=== PATIENT | male | born 1990 | race African-American/Black ===

== ENCOUNTER 2017-03-01 08:35 | Emergency (ER) | payer OTHER, SELFPAY ==
[~2017-03-01] VITALS: Ht 185.4 cm; Wt 108.9 kg
[2017-03-01 08:43] VITALS: BP 164/93
[2017-03-01] MEDS ORDERED: ALBU17IN (08:47)
[2017-03-01] MEDS ORDERED: CHLO125TA (08:47)
[2017-03-01] MEDS ORDERED: DULO1CAP2 (08:47)
[2017-03-01] MEDS ORDERED: predniSONE 20 MG TAB PO ONE (09:45)
[2017-03-01] MEDS: IPRATROPIUM 0.5MG/ALBUTEROL 2.5MG INH SOL UD 3ML (DUONEB)(J7620) NEB SCH ×3 (09:48→10:45)
[2017-03-01 10:25] LABS: CONTROL LINE MONO INT CTR LINE PRESENT
--- NOTE | 2017-03-01 10:31 | REP ---
Chest x-ray: Two views. History: Cough and shortness of breath. . Comparison study: No comparison study . Findings: The lungs are well inflated and free of infiltrate. The pleural angles are sharp. The heart size is normal. Pulmonary vasculature is not increased. No significant bony abnormality is seen. Impression: Negative chest x-ray. Signed by Isaías Mcdermott MD 03/01/2017 10:22 A
[2017-03-01] MEDS ORDERED: PRED20TA PO ×2 (11:24→16:03)
[2017-03-01] MEDS ORDERED: ALBU17IN INH (11:24)
[2017-03-01] MEDS ORDERED: ZITHTAB PO (11:24)
[2017-03-01] MEDS ORDERED: MUCI600T34 PO (11:25)
[2017-03-01] MEDS ORDERED: CLAR1TAB2 PO (11:26)
[2017-03-01] MEDS ORDERED: AZITHROMYCIN 250 MG TAB PO ONE (11:30)
== END 2017-03-01 11:43 | disposition home or self-care (01) ==
LOC: M ED 09:58
DX: J01.90 Acute sinusitis, unspecified (principal); J20.9 Acute bronchitis, unspecified; J45.909 Unspecified asthma, uncomplicated; Z88.0 Allergy status to penicillin; Z79.899 Other long term (current) drug therapy

== ENCOUNTER 2018-02-15 11:46 | Emergency (ER) | payer OTHER, SELFPAY ==
[2018-02-15] MEDS: KETOROLAC TROMETHAMINE 10 MG TAB PO (12:20)
[2018-02-15] MEDS: ALBUTEROL SULFATE 2.5 MG/0.5 ML INH NEB SOLN NEB (12:26)
[2018-02-15 13:02] LABS: INFLUENZA A AMPLIFICATION NEGATIVE (NEGATIVE); INFLUENZA B AMPLIFICATION NEGATIVE (NEGATIVE)
== END 2018-02-15 13:15 | disposition home or self-care (01) ==
LOC: M ED 11:46
DX: J45.901 Unspecified asthma with (acute) exacerbation (principal); S39.012A Strain of muscle, fascia and tendon of lower back, initial encounter; X58.XXXA Exposure to other specified factors, initial encounter; Y92.89 Other specified places as the place of occurrence of the external cause; I10 Essential (primary) hypertension; F41.9 Anxiety disorder, unspecified; F32.9 Major depressive disorder, single episode, unspecified; Z87.891 Personal history of nicotine dependence; Z88.0 Allergy status to penicillin; Z79.899 Other long term (current) drug therapy
CPT/HCPCS: 71046

== ENCOUNTER 2019-05-21 08:47 | Emergency (ER) | payer OTHER ==
[~2019-05-21] VITALS: Ht 188 cm; Wt 98.0 kg
[~2019-05-21 08:47] MED LIST: ALBU17IN; ALBU17IN INH; CHLO125TA; CLAR1TAB2 PO; DICL75TA PO; DULO1CAP5; EFFE75CA2 PO; MUCI600T37 PO; PRED20TA PO; ROBA500T PO; ZITHTAB PO
[2019-05-21] MEDS ORDERED: ALBUTEROL SULFATE 2.5 MG/0.5 ML INH NEB SOLN NEB PRN (09:15)
[2019-05-21 09:48] LABS: BASO # 0.1 10^3/uL (0.0-0.2); BASO % 1.1 % (0.0-1.0); EOS # 0.4 10^3/uL (0.0-0.50); EOS % 7.8 % (0.0-3.0); HEMATOCRIT 41.9 % (42.0-52.0); HEMOGLOBIN 14.3 g/dl (13.5-17.5); LYMPH # 1.6 10^3/uL (1.5-6.5); LYMPH % 29.1 % (24.0-44.0); MEAN CORPUSCULAR HEMOGLOBIN 32.6 pg (27.0-33.0); MEAN CORPUSCULAR HGB CONC 34.1 g/dl (32.0-36.5); MEAN CORPUSCULAR VOLUME 95.7 fl (80.0-96.0); MONO # 0.3 10^3/uL (0.0-0.8); MONO % 5.6 % (0.0-5.0); NEUTROPHILS % 56.2 % (36.0-66.0); PLATELET COUNT, AUTOMATED 155 10^3/uL (150-450); RED BLOOD COUNT 4.38 10^6/uL (4.30-6.10); WHITE BLOOD COUNT 5.4 10^3/uL (4.0-10.0)
[2019-05-21 10:09] LABS: BLOOD UREA NITROGEN 5 MG/DL (7-18); CALCIUM LEVEL 8.9 MG/DL (8.5-10.1); CARBON DIOXIDE LEVEL 24 MEQ/L (21-32); CHLORIDE LEVEL 110 MEQ/L (98-107); CK-MB VALUE MASS < 1.0 NG/ML (<3.6); CPK CREATINE PHOSPHOKINASE 118 U/L (39-308); GLOMERULAR FILTRATION RATE > 60.0 (>60); GLUCOSE, FASTING 92 MG/DL (70-100); MB/CK RELATIVE INDEX 0.85 (< OR =4); POTASSIUM SERUM 3.8 MEQ/L (3.5-5.1); SODIUM LEVEL 142 MEQ/L (136-145); TROPONIN I < 0.02 NG/ML (< 0.10)
--- NOTE | 2019-05-21 10:11 | REP ---
REASON: Cough. COMPARISON: 02/15/2018. FINDINGS: The superior mediastinal structures are midline. The cardiac silhouette is unremarkable in size, shape, and position. The diaphragmatic surfaces of the lungs are regular, and the costophrenic angles are clear. The pulmonary hummel are clear. The imaged osseous structures are intact. IMPRESSION: There is no acute cardiopulmonary disease. Electronically Signed by Bridger Jones DO 05/21/2019 12:30 P
[2019-05-21] MEDS ORDERED: PROAAER10 INH (11:00)
[2019-05-21 11:04] VITALS: BP 137/95
--- NOTE | 2019-05-21 17:56 | ECGEPIP ---
[facility] - ED Test Date: 2019-05-21 Pat Name: CLEMENTE COLEMAN Department: Room: - Gender: Male [employer] Director: kirti : 1990 Requested By: TOO Omer PA-C Order Number: [id number] Reading MD: Jerri Stark Measurements Intervals [place] Rate: 70 P: 39 TX: 134 QRS: 45 QRSD: 113 T: 61 QT: 392 QTc: 426 Interpretive Statements SINUS RHYTHM WITH SINUS ARRHYTHMIA MODERATE INTRAVENTRICULAR CONDUCTION DELAY NO PRIOR Electronically Signed on 05-21-2019 17:56:14 EDT by Jerri Stark
== END 2019-05-21 11:05 | disposition home or self-care (01) ==
LOC: M ED 08:47
DX: J45.901 Unspecified asthma with (acute) exacerbation (principal); I10 Essential (primary) hypertension; F41.9 Anxiety disorder, unspecified; F32.9 Major depressive disorder, single episode, unspecified; Z88.0 Allergy status to penicillin; Z79.899 Other long term (current) drug therapy

== ENCOUNTER 2019-11-27 09:19 | Emergency (ER) | payer OTHER ==
[~2019-11-27] VITALS: Ht 188 cm; Wt 102.0 kg
[~2019-11-27 09:19] MED LIST changes: +PROAAER10 INH
[2019-11-27] MEDS ORDERED: LIDOCAINE 5% (LIDODERM) PATCH TD ONE (11:15)
[2019-11-27 11:39] LABS: BASO # 0.1 10^3/uL (0.0-0.2); EOS # 0.3 10^3/uL (0.0-0.5); EOS % 5.6 % (0.0-3.0); HEMATOCRIT 42.6 % (42.0-52.0); HEMOGLOBIN 13.9 g/dl (13.5-17.5); LYMPH # 1.7 10^3/uL (1.5-5.0); LYMPH % 27.8 % (24.0-44.0); MEAN CORPUSCULAR HEMOGLOBIN 31.8 pg (27.0-33.0); MEAN CORPUSCULAR HGB CONC 32.6 g/dl (32.0-36.5); MEAN CORPUSCULAR VOLUME 97.5 fl (80.0-96.0); MONO # 0.4 10^3/uL (0.0-0.8); MONO % 5.9 % (0.0-5.0); NEUTROPHILS # 3.6 10^3/uL (1.5-8.5); NEUTROPHILS % 59.5 % (36.0-66.0); PLATELET COUNT, AUTOMATED 144 10^3/uL (150-450); RED BLOOD COUNT 4.37 10^6/uL (4.30-6.10); WHITE BLOOD COUNT 6.1 10^3/uL (4.0-10.0)
--- NOTE | 2019-11-27 11:49 | REP ---
Clinical: thoracic pain. Technique: AP, lateral, and swimmers views. Findings: Alignment and kyphosis is maintained. Vertebral bodies intact. No acute fracture / compression injury or subluxation. No degenerative changes. Paravertebral soft tissues are normal. Impression: Normal thoracic spine series. Electronically Signed by Bebo Avina MD 11/27/2019 11:40 A
--- NOTE | 2019-11-27 11:51 | REP ---
PA and lateral chest: Comparison is 05/21/2019. The lung hummel are clear. The cardiac size is normal. The curt, mediastinum, and skeletal structures are unremarkable. Impression: Negative PA and lateral chest. There is no interval change. Electronically Signed by Armando Huitron MD 11/27/2019 11:42 A
[2019-11-27 12:04] LABS: CK-MB VALUE MASS 1.2 NG/ML (<3.6); CPK CREATINE PHOSPHOKINASE 114 U/L (39-308); MB/CK RELATIVE INDEX 1.05 (< OR =4); TROPONIN I < 0.02 NG/ML (< 0.10)
[2019-11-27] MEDS ORDERED: BACL10TA2 PO (12:41)
[2019-11-27] MEDS ORDERED: LIDO5DIS41 TOP (12:42)
[2019-11-27 12:50] VITALS: BP 140/86
[2019-11-27] MEDS ORDERED: **NOTE PATIENT COMMENT** MISC XX SCH (21:00)
== END 2019-11-27 12:51 | disposition home or self-care (01) ==
LOC: M ED 09:19
DX: M62.830 Muscle spasm of back (principal); I10 Essential (primary) hypertension; J45.909 Unspecified asthma, uncomplicated; F41.9 Anxiety disorder, unspecified; F33.9 Major depressive disorder, recurrent, unspecified; Z88.0 Allergy status to penicillin; Z79.899 Other long term (current) drug therapy

== ENCOUNTER 2022-07-27 12:32 | Emergency (ER) | payer OTHER ==
[~2022-07-27] VITALS: Ht 188 cm; Wt 102.4 kg
[~2022-07-27 12:32] MED LIST changes: +BACL10TA2 PO; +LIDO5DIS41 TOP
[2022-07-27] MEDS ORDERED: VENL150C43 (12:45)
[2022-07-27 13:36] LABS: BASO # 0.1 10^3/uL (0.0-0.2); BASO % 0.7 % (0.0-1.0); EOS # 0.3 10^3/uL (0.0-0.5); EOS % 4.1 % (0.0-3.0); HEMATOCRIT 43.7 % (42.0-52.0); HEMOGLOBIN 14.5 g/dl (13.5-17.5); LYMPH # 1.4 10^3/uL (1.5-5.0); LYMPH % 16.9 % (24.0-44.0); MEAN CORPUSCULAR HGB CONC 33.2 g/dl (32.0-36.5); MEAN CORPUSCULAR VOLUME 96.5 fl (80.0-96.0); MONO # 0.5 10^3/uL (0.0-0.8); MONO % 6.4 % (2.0-8.0); NEUTROPHILS # 5.8 10^3/uL (1.5-8.5); NEUTROPHILS % 71.7 % (36.0-66.0); PLATELET COUNT, AUTOMATED 187 10^3/uL (150-450); RED BLOOD COUNT 4.53 10^6/uL (4.30-6.10); WHITE BLOOD COUNT 8.1 10^3/uL (4.0-10.0)
[2022-07-27 14:21] LABS: CK-MB VALUE MASS 1.2 NG/ML (<3.6); MB/CK RELATIVE INDEX 1.03 (< OR =4)
[2022-07-27 14:29] LABS: ALT/SGPT 32 U/L (12-78); BILIRUBIN,DIRECT 0.2 MG/DL (0.0-0.2); BILIRUBIN,TOTAL 0.6 MG/DL (0.2-1.0); BLOOD UREA NITROGEN 7 MG/DL (7-18); CALCIUM LEVEL 8.9 MG/DL (8.5-10.1); CARBON DIOXIDE LEVEL 25 MEQ/L (21-32); CHLORIDE LEVEL 107 MEQ/L (98-107); GLOMERULAR FILTRATION RATE > 60.0 (>60); GLUCOSE, FASTING 103 MG/DL (70-100); LIPASE 151 U/L (73-393); POTASSIUM SERUM 4.2 MEQ/L (3.5-5.1); SODIUM LEVEL 137 MEQ/L (136-145); THYROID STIMULATING HORMONE 0.805 uIU/ML (0.358-3.740); TOTAL PROTEIN 7.3 GM/DL (6.4-8.2)
[2022-07-27] MEDS ORDERED: AZIT-12 PO (14:43)
[2022-07-27] MEDS ORDERED: OMEP-173 PO (14:43)
[2022-07-27 14:59] VITALS: BP 140/90
== END 2022-07-27 15:00 | disposition home or self-care (01) ==
LOC: M ED 12:32
DX: R07.89 Other chest pain (principal); R93.41 Abnormal radiologic findings on diagnostic imaging of renal pelvis, ureter, or bladder; M79.622 Pain in left upper arm; M54.2 Cervicalgia; I10 Essential (primary) hypertension; E11.9 Type 2 diabetes mellitus without complications; F17.200 Nicotine dependence, unspecified, uncomplicated; Z87.09 Personal history of other diseases of the respiratory system; Z88.0 Allergy status to penicillin; Z79.899 Other long term (current) drug therapy

== ENCOUNTER → 2024-01-20 | Outpatient (REF) | payer OTHER ==
[~2024-01-20] MED LIST changes: +AZIT-12 PO; +OMEP-173 PO; +VENL150C43
== END ==
LOC: M LAB 19:31
PROVIDERS: ATTEND Physician Assistant Medical
DX: R07.0 Pain in throat (principal)

== ENCOUNTER 2025-01-15 08:06 | Emergency (ER) | payer OTHER ==
[~2025-01-15] VITALS: Ht 188 cm; Wt 98.9 kg
[2025-01-15 10:24] LABS: BASO # 0.1 10^3/uL (0.0-0.2); BASO % 0.5 % (0.0-1.0); EOS # 0.7 10^3/uL (0.0-0.5); EOS % 7.5 % (0.0-3.0); HEMATOCRIT 39.1 % (42.0-52.0); HEMOGLOBIN 12.6 g/dl (13.5-17.5); LYMPH # 1.3 10^3/uL (1.5-5.0); LYMPH % 14.5 % (24.0-44.0); MEAN CORPUSCULAR HEMOGLOBIN 30.8 pg (27.0-33.0); MEAN CORPUSCULAR HGB CONC 32.2 g/dl (32.0-36.5); MEAN CORPUSCULAR VOLUME 95.6 fl (80.0-96.0); MONO # 0.6 10^3/uL (0.0-0.8); NEUTROPHILS # 6.5 10^3/uL (1.5-8.5); NEUTROPHILS % 70.2 % (36.0-66.0); PLATELET COUNT, AUTOMATED 228 10^3/uL (150-450); RED BLOOD COUNT 4.09 10^6/uL (4.30-6.10); WHITE BLOOD COUNT 9.2 10^3/uL (4.0-10.0)
[2025-01-15 10:37] LABS: ERYTHROCYTE SEDIMENTATION RATE 46 mm/hr (0-15)
[2025-01-15] MEDS ORDERED: BACT800T5 PO (10:39)
[2025-01-15 10:43] LABS: ALBUMIN 3.6 G/DL (3.2-5.2); ALKALINE PHOSPHATASE 82 U/L (40-129); ALT/SGPT 18 U/L (7.0-40); AST/SGOT 10 U/L (<34); BILIRUBIN,TOTAL 0.5 MG/DL (0.3-1.2); BLOOD UREA NITROGEN 7 MG/DL (9-23); CALCIUM LEVEL 8.6 MG/DL (8.5-10.1); CARBON DIOXIDE LEVEL 26 MMOL/L (20-31); CHLORIDE LEVEL 107 MMOL/L (98-107); CREATININE FOR GFR 0.75 MG/DL (0.70-1.30); GLOMERULAR FILTRATION RATE > 90.0 (>60); GLUCOSE, FASTING 90 MG/DL (60-100); POTASSIUM SERUM 3.9 MMOL/L (3.5-5.1); SODIUM LEVEL 143 MMOL/L (136-145); TOTAL PROTEIN 7.2 G/DL (5.7-8.2)
[2025-01-15] MEDS: CLINDAMYCIN 900 MG in IV 1 EA IV ONE (11:05)
[2025-01-15 12:05] VITALS: BP 160/80; TEMP 98.6; O2SAT 100
== END 2025-01-15 12:07 | disposition home or self-care (01) ==
LOC: M ED 08:06
DX: R21 Rash and other nonspecific skin eruption (principal); F17.210 Nicotine dependence, cigarettes, uncomplicated; F12.10 Cannabis abuse, uncomplicated; Z88.1 Allergy status to other antibiotic agents; Z79.899 Other long term (current) drug therapy
CPT/HCPCS: 80053; 85025; 85652; 86140; 87040; 93971; 96365; 99284; J0737